=== PATIENT | male | born 1975 | race Caucasian/White ===

== ENCOUNTER → 2018-05-21 | Day surgery (SDC) | payer BC ==
[~2018-05-21] MED LIST: ACETAMINOPHEN 1000 MG/100 ML IV ONE; DEXAMETHASONE SOD PHOS INJ 4 MG/ML VIAL ONE; FENTANYL CITRATE/PF 100MCG/2 ML INJ ONE; LEVOFLOXACIN 500MG/D5W 100ML 100 ML IV ONE; LIDOCAINE HCL 2% LOCAL INJ 5 ML SDV VIAL INJ ONE; MIDAZOLAM HCL 2 MG/2 ML VIAL ONE; ONDANSETRON HCL INJ 2 MG/ML VIAL ONE; PROPOFOL IV EMULSION 10 MG/ML 20 ML VIAL ONE; SEVOFLURANE INHAL SOLN 250 ML PEN BTL ONE; TRAMADOL/APAP 37.5MG-325MG TAB ONE; ZANTAC 7575 MG
[2018-05-21 11:50] VITALS: BP 126/90
--- NOTE | 2018-05-21 12:48 | Operative Report ---
DATE OF PROCEDURE: May 21, 2018 PREOPERATIVE DIAGNOSIS: Family planning/sterilization. POSTOPERATIVE DIAGNOSIS: Family planning/sterilization. OPERATION: Bilateral vasectomy. MATTING PRESS TENDER: Dr. Correa. ANESTHETIC: General. HISTORY: Mr. Corcoran is a 42-year-old male who presented for bilateral vasectomy as a means of family planning. The operative procedure was explained in detail to the patient including the risks of surgery including the risks of infection, bleeding, chronic testicular pain, recanalization of the vas, appearance of sperm and ultimate , and atrophic changes of the testicle, and he understood. He was also instructed in no sexual activity for the next 3 to 4 weeks and also no unprotected sexual intercourse or activity for the next 8 weeks until semen analysis is obtained and shows no sperm, and he also understood. PROCEDURE IN DETAIL: This patient was placed on the table in the supine position and was prepped and draped in a sterile manner after satisfactory anesthesia. A longitudinal incision over the anterolateral border on the right side, incising the skin and dartos muscle. The tunica vaginalis was incised longitudinally. The spermatic cord covering was incised longitudinally. The vas was isolated. A 1/2-inch segment was excised. Each end of the incised vas was cauterized and tied times 2 using 4-0 black silk on each side. Hemostasis was obtained all through and was very adequate using the electrocautery. The spermatic cord was delivered inside the scrotal sac. The dartos muscle was approximated continuously using 4-0 Vicryl. The skin was approximated interruptedly using 4-0 Vicryl. A sterile dressing was applied. Attention was now directed to the left vas. A left vasectomy was performed similarly, incising the skin and the dartos muscle. The spermatic cord was isolated, and the spermatic cord covering was incised longitudinally. The vas was isolated. A 1/2-inch segment of the vas was excised. Each end of the incised vas was cauterized with electrocautery. Each end was also tied times 2 using 4-0 black silk. Hemostasis was obtained all through and was very adequate. Attention was now directed to the wound closure. The spermatic cord was delivered inside the scrotal sac. The dartos muscle was approximated continuously using 4-0 Vicryl. The skin was approximated interruptedly using 4-0 Vicryl. Dermabond dressing was placed on each incision. Scrotal support and fluffs were applied. The plan for this patient is to have an ice pack on the scrotal sac for the next few days. Discharge medications were: 1. Levaquin 500 mg once a day for 1 week. 2. Ultracet tablet 1 every 4-6 hours p.r.n., and he was given 30. He is to return to the office in 1 month. Job#: [id number]
== END | disposition home or self-care (01) ==
LOC: OR 08:20
PROVIDERS: ATTEND Specialist
DX: Z30.2 Encounter for sterilization (principal); J44.9 Chronic obstructive pulmonary disease, unspecified; K25.9 Gastric ulcer, unspecified as acute or chronic, without hemorrhage or perforation; F17.210 Nicotine dependence, cigarettes, uncomplicated; Z88.0 Allergy status to penicillin
CPT/HCPCS: 55250; 88302; 93005; J1100; J1956; J2001; J2250; J2405